=== PATIENT | female | born 1985 | race African-American/Black ===

== ENCOUNTER 2022-08-04 10:15 | Outpatient (RCR) | payer OTHER, SELFPAY ==
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
[2022-07-21 13:07] VITALS: BP 110/80; PULSE 80; TEMP 37.3
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
--- NOTE | 2022-07-23 15:57 | HO.PHP ---
Clients case was reviewed and opened today in treatment team.
--- NOTE | 2022-07-28 11:52 | P.PNPSP_ITS ---
Subjective Subjective Date of Service: 07/28/22 Reason For Visit: PTSD,anxiety,severe depression Medical Problems Affecting Mental Status: No Interim History: Reports slight improvement regarding depression and anxiety, states she is ?a little more hopeful ?. No active SI, no safety concerns. Believes the BuSpar wears off during the day. Has begun taking Wellbutrin, not really noticing difference. Was able to get out of bed, cleaning her room, attend to tasks more readily however. Sleep improving, able to get up and start day more readily. Tried clonidine once in the morning, said it was too sedating. Participating in groups. Medication Compliance: Intermittent Side effects from medications: No Attending Groups: Yes Review of Systems Acute medical concerns: No Medical Review of Systems: unchanged Review of Systems Review of Systems Yes all other systems are reviewed and are negative Constitutional: Reports no additional constitutional complaints Mental Status Exam Mental Status Exam Narrative: NAD Patient Appearance: Well Grooomed Patient Orientation: Person, Place, Time and Situation Level of Consciousness: Appropriate Patient Behavior: Appropriate, Cooperative and Good Eye Contact Mood Description: Depressed (slight improvement) and Anxious (slight improvement) Affect Description: Depressed and Anxious Patient Cognition Impaired: No Ability to Follow Directions: Excellent Speech Pattern: Clear Memory Description: Intact Hallucinations: None Delusions: Not Present Perceptual Disturbances: Depersonalization Thought Process: Intact Thought Content: positive for Intact and positive for Suicidal Ideation (intermittent passive) Depressive Symptoms: Increased Anxiety, Changes in Appetite (Decreased), Loss of Int. in Activity, Thoughts of /Suicide, Loss of Energy and Difficulty Concentrating Judgement: Fair Assessment & Plan Assessment & Plan (1) Major depressive disorder, recurrent severe without psychotic features: Status: Acute Code(s): F33.2 - Major depressive disorder, recurrent severe without psychotic features Assessment and Plan: Continues with depressed, anxious mood an affect, although reports slightly improved. No active SI reported, no safety concerns. Has had intermittent passive SI, no intent/plan. Has been taking the Wellbutrin, not noticing much difference yet, however states she has been able to get up out of bed, attend to ADLs/I ADLs more often. States that the BuSpar wears off. Discussed BuSpar not being entirely effective with PTSD symptoms, suggested continue taking clonidine, cut tab in half if 0.1mg is too sedating. She has only taken it once since last week, will try taking 0.05 in order to help with anxiety symptoms. She was in agreement with this, and will try it. She is trying to focus on the future, feels that groups are somewhat helpful. Wishes that they were longer. Patient was encouraged to use time effectively during group sessions. Discussed increase Wellbutrin 100 mg to twice daily, instructions provided to patient regarding timing. She stated she was willing to try this. We also discussed changing to a long-acting formulation. She is willing to 1st trial taking it b.i.d. at 100 mg first. (2) Generalized anxiety disorder: Status: Acute Code(s): F41.1 - Generalized anxiety disorder (3) Post-traumatic stress disorder, chronic: Status: Acute Code(s): F43.12 - Post-traumatic stress disorder, chronic (4) Dissociative disorder: Status: Acute Code(s): F44.9 - Dissociative and conversion disorder, unspecified Plan 1. Continue with current [facility] plan of care. 2. Increase Wellbutrin to 100 mg b.i.d.. Patient has supply, no script sent at this time. 3. Patient willing to start utilizing p.r.n. clonidine 0.5 mg-0.1 mg p.r.n. for anxiety. 4. Follow-up as per protocol. Patient educated on: diagnosis, medication risk/benefits and therapeutic strategies Informed Consent: understands Reason for contiued partial hosp. stay Substantial Risk for: harm to self, inability to function and rapid decompensation Certification I certify that partial hospital treatment is medically necessary due to the symptoms and problems resulting from the patient's mental illness and the failure to treat the patient at the partial hospital level of care would likely result in the patient requiring inpatient psychiatric care which could not be prevented at a less intensive level of care. Total time managing care of this patient today __20__ minutes. Discharge Plan Discharge Attending provider: Raúl Cintron Medications: New clonidine HCl 0.1 mg tablet See Rx Instructions .ROUTE .COMPLEX Qty: 30 0RF Rx Instructions: Take 1/2 tab (0.05mg) to 1 tab (0.1mg) twice daily as needed for anxiety. Hold if BP under 90/60. buspirone 15 mg tablet 15 mg PO BID Qty: 30 0RF bupropion HCl 100 mg tablet 100 mg PO DAILY Qty: 15 0RF No Action sertraline 100 mg tablet 200 mg PO DAILY Stand Alone Forms: Patient Portal Discharge page
--- NOTE | 2022-07-28 15:07 | HO.PHP ---
[facility] staff contacted [facility] in [place] to place a referral for psychiatry. [facility] staff received a returned phone call stating that they Scheduled Sissy to meet with Latasha Ceballos via telehealth on August 19 at 9 AM. [facility] staff informed Sissy and she was receptive.
--- NOTE | 2022-07-30 16:41 | HO.PHP ---
[facility] staff contacted Sissy's therapist to inform her of how she has been engaging within the program and of her discharge date. [facility] staff left a message.
--- NOTE | 2022-08-03 10:01 | P.PNPSP_ITS ---
Subjective Subjective Date of Service: 08/03/22 Reason For Visit: PTSD,anxiety,severe depression Medical Problems Affecting Mental Status: No Interim History: Patient doing well with increased Wellbutrin dose. Not using prn clonidine during day, as it is too sedating. Finds it helpful at night. No SI reported, no safety concerns. Less depressed, less anxious. Hopeful for future. Feels program was helpful. Reports feels stable for discharge from [facility] at this time. Medication Compliance: Yes Side effects from medications: Yes (Daytime p.r.n. clonidine to sedating.) Attending Groups: Yes Review of Systems Acute medical concerns: No Medical Review of Systems: unchanged Review of Systems Review of Systems Yes all other systems are reviewed and are negative Constitutional: Reports no additional constitutional complaints Mental Status Exam Mental Status Exam Narrative: NAD Patient Appearance: Well Grooomed Patient Orientation: Person, Place, Time and Situation Level of Consciousness: Appropriate Patient Behavior: Appropriate, Cooperative and Good Eye Contact Mood Description: Depressed (much improved) and Anxious (much improved) Affect Description: Appropriate Patient Cognition Impaired: No Ability to Follow Directions: Excellent Speech Pattern: Clear Memory Description: Intact Hallucinations: None Delusions: Not Present Perceptual Disturbances: Depersonalization (by report) Thought Process: Intact Thought Content: positive for Intact Judgement: Good Assessment & Plan Assessment & Plan (1) Major depressive disorder, recurrent severe without psychotic features: Status: Acute Code(s): F33.2 - Major depressive disorder, recurrent severe without psychotic features Assessment and Plan: Patient doing well with increased Wellbutrin dose. Reports that she is feeling better. Not using clonidine during day, as it is too sedating. Finds it helpful at night. Reviewed medications in detail. Would rather stay with Wellbutrin 100 mg twice a day rather than switching to a long-acting formula. Not using BuSpar, as she is trying to use clonidine to help manage anxiety symptoms. No SI reported, no safety concerns. Less depressed, less anxious. Hopeful for future. Feels program was helpful. Fully participated in groups. Reports feels stable for discharge from [facility] at this time. (2) Generalized anxiety disorder: Status: Acute Code(s): F41.1 - Generalized anxiety disorder (3) Post-traumatic stress disorder, chronic: Status: Acute Code(s): F43.12 - Post-traumatic stress disorder, chronic Assessment and Plan: No overt PTSD symptoms reported today. (4) Dissociative disorder: Status: Acute Code(s): F44.9 - Dissociative and conversion disorder, unspecified Assessment and Plan: By report disociates, none noticed today. Plan 1. Patient appears stable for discharge from [facility] at this time. 2. Thirty day prescription of Wellbutrin sent to pharmacy, patient does not need refills of other medications per her report. 3. Patient to follow-up with outpatient providers going forward. Patient educated on: diagnosis, medication risk/benefits and therapeutic strategies Informed Consent: understands Reason for contiued partial hosp. stay Substantial Risk for: stable for discharge Certification I certify that partial hospital treatment is medically necessary due to the symptoms and problems resulting from the patient's mental illness and the failure to treat the patient at the partial hospital level of care would likely result in the patient requiring inpatient psychiatric care which could not be prevented at a less intensive level of care. Total time managing care of this patient today __15__ minutes. Discharge Plan Discharge Attending provider: Raúl Cintron Medications: New clonidine HCl 0.1 mg tablet See Rx Instructions .ROUTE .COMPLEX Qty: 30 0RF Rx Instructions: Take 1/2 tab (0.05mg) to 1 tab (0.1mg) twice daily as needed for anxiety. Hold if BP under 90/60. buspirone 15 mg tablet 15 mg PO BID Qty: 30 0RF bupropion HCl 100 mg tablet 100 mg PO BID Qty: 60 0RF No Action sertraline 100 mg tablet 200 mg PO DAILY Stand Alone Forms: Patient Portal Discharge page Patient Education: Depression (DC)
== END 2022-08-04 23:59 | disposition home or self-care (01) ==
LOC: HO.PHPA 10:15
PROVIDERS: Visit Provider Psychiatry & Neurology Psychiatry
DX: F33.2 Major depressive disorder, recurrent severe without psychotic features (principal); F41.1 Generalized anxiety disorder; F43.12 Post-traumatic stress disorder, chronic; F44.9 Dissociative and conversion disorder, unspecified; Z79.899 Other long term (current) drug therapy
CPT/HCPCS: 90791; 90853